=== PATIENT | female | born 1970 | race Caucasian/White ===

== ENCOUNTER 2021-08-27 21:04 | Emergency (ER) | payer OTHER, SELFPAY ==
--- NOTE | ~2021-08-27 | CT_ITS ---
EXAMINATION: CT abdomen pelvis w con EXAM DATE: 08/27/2021 23:19 INDICATION: Fever, vomiting, body aches. . TECHNIQUE: Spiral CT of the abdomen and pelvis was performed following intravenous injection of 100 m L Omnipaque 350. Axial, coronal and sagittal images of the abdomen and pelvis were reviewed. The do se-length product (DLP) for this examination was 1579.51 mGy-cm. The exposure was tailored according to patient size (auto mA exposure control), and iterative reconstruction (ASIR) was used as addition al dose reduction technique. There is no prior study for comparison. FINDINGS: There is hepatic steatosis without suspicious focal lesion identified. Spleen, adrenal glan ds, pancreas are unremarkable. There are cholecystectomy clips. Portal and splenic veins are patent . Kidneys enhance symmetrically. There is no hydronephrosis. The uterus is anteverted and morphol ogically normal. The bladder is unremarkable. No abdominal or pelvic lymphadenopathy. The appendix is not positively visualized. There is no pericecal inflammatory change to suggest appe ndicitis. The stomach and small bowel are unremarkable. There is expected amount of colonic stool. No free intraperitoneal gas. The heart is normal in size. There are no pericardial or pleural e ffusions. Scattered basilar subsegmental atelectasis. Right middle lobe calcified granuloma. IMPRESSION: Hepatic steatosis. No acute intra-abdominal findings. Reviewed, dictated and finalized at location A.
--- NOTE | ~2021-08-27 | XR_ITS ---
EXAMINATION: XR chest 2V DATE: 08/27/2021 21:45 INDICATION: Fever, sore throat, body aches TECHNIQUE: PA and lateral views of the chest are obtained. COMPARISON: None available FINDINGS: There are minimal opacities of the lung bases. There is no pleural effusion or pneumothorax . The cardiomediastinal silhouette is normal. There is mild thoracic spondylosis. IMPRESSION: 1. Bibasilar airspace opacities, consistent with atelectasis versus pneumonia. Reviewed, dictated and finalized at location F.
[2021-08-27 21:09] VITALS: BP 133/79; PULSE 120; RESP 18; TEMP 36.8; O2SAT 94
--- NOTE | 2021-08-27 21:39 | ED.FEVER ---
HPI - Fever General Chief Complaint: Fever Stated Complaint: fever x 1 day Time Seen by Provider: 08/27/21 21:20 Source: patient Mode of arrival: ambulatory Limitations: no limitations History of Present Illness HPI Narrative: This is a 51 year old female that presents to the ER for fevers noted since yesterday. Reports her daughter was recently sick as well. Reports sore throat and myalgias. Also reports nausea and vomiting. Reports she had strep, influenza, and COVID swabs today at her primary office which all were negative. Denies focal abdominal pain, dysuria, or diarrhea. Related Data Allergies Allergy/AdvReac Type Severity Reaction Status Date / Time No Known Allergies Allergy Unverified 12/04/15 17:16 Review of Systems Review of Systems: CONSTITUTIONAL: Reports fever ENT: Reports sore throat RESPIRATORY: Denies dyspnea. GASTROINTESTINAL: Reports nausea and vomiting. Denies abdominal pain or diarrhea. GENITOURINARY: Denies dysuria MUSCULOSKELETAL: Reports myalgia. All systems reviewed & are unremarkable except as noted in HPI and below PMFSH Past Medical History Medical History (Updated 08/28/21 @ 00:35 by Zahira Rizo PA-C) No active medical problems Family History Family History (Updated 12/03/15 @ 13:07 by DOCTOR UNKNOWN) Other Diabetes mellitus Family history of allergic disorder Hypertension Social History Social History Smoking status: Former smoker Smoking end date: 05/10/11 Alcohol intake: current Exam Narrative: GENERAL: Well-appearing, well-nourished, and in no acute distress. HEAD: Normocephalic, atraumatic. EYES: EOMI. ENT: Nares clear, no rhinorrhea or epistaxis. Mucous membranes moist. Oropharynx without tonsillar hypertrophy exudate or other lesions. Bilateral TMs pearly leiva non-bulging NECK: Supple. No adenopathy or masses. CHEST: Clear to auscultation. No respiratory distress. No wheezes rales or rhonchi HEART: Regular rate and rhythm. No murmur heard. Normal peripheral pulses. ABDOMEN: Soft, nontender, nondistended, normal active bowel sounds. EXTREMITIES: Normal range of motion. No edema. SKIN: Warm, dry, no rash. NEURO: No focal deficits. Alert and oriented x3. PSYCH: Normal mood and affect Course Vital Signs Vital signs: Vital Signs Temperature 98.3 F 08/27/21 21:09 Pulse Rate 120 H 08/27/21 21:09 Respiratory Rate 18 08/27/21 21:09 Blood Pressure 133/79 08/27/21 21:09 Pulse Oximetry 94 08/27/21 21:09 Temperature 98.9 F 08/27/21 22:50 Pulse Rate 120 H 08/27/21 21:09 Respiratory Rate 16 08/27/21 22:50 Blood Pressure 128/76 08/27/21 22:50 Pulse Oximetry 100 08/27/21 22:50 MDM - Fever MDM Narrative Medical decision making narrative: Patient presents to the emergency department for cold symptoms present since yesterday. Tachycardic upon arrival, this normalized with IV fluid administration. She has been afebrile in the ED. She is non-toxic appearing. Oxygen saturation has remained normal on room air. CBC with leukocytosis to 13.9. Metabolic panel without concerning findings. UA without evidence of infection. Lactic acid is not elevated. CT scan of the abdomen and pelvis without acute findings. Does show an incidental splenic hypodensity. Chest x-ray shows bibasilar airspace opacities, atelectasis versus pneumonia. Patient was updated on case findings. Will be started on oral antibiotics for pneumonia. She is stable and felt appropriate for further outpatient evaluation. She was given warnings to return to the ER Lab Data Attestation: I reviewed the patient's lab results. Result diagrams: 08/27/21 22:01 08/27/21 22:01 Labs: Lab Results 08/27/21 08/27/21 08/27/21 Range/Units 22:01 22:01 22:01 WBC 13.9 H (4.5-10.0) K/mm3 RBC 5.04 (4.2-5.4) M/mm3 Hgb 13.8 (12.0-15.0) g/dL Hct 41.2 (37.0-47.0) % MCV 81.7 (80-100) fl MCH 27.4 (26-34) pg MCHC
[2021-08-27 21:44] VITALS: TEMP 37.7
[2021-08-27] MEDS: ONDANSETRON INJ 4 MG/2 ML VIAL IV PUSH (22:12)
[2021-08-27] MEDS: SODIUM CHLORIDE 0.9% IV 1,000 ML 999 ML IV CONT (22:12)
[2021-08-27 22:18] LABS: Basophils Percent Auto 0.3 % (0.2-1.2); Eosinophils Percent Auto 0.1 % (0-4.4); Hematocrit 41.2 % (37.0-47.0); Hemoglobin 13.8 g/dL (12.0-15.0); Immature Granulocyte Absolute 0.09 K/mm3 (0.00-0.031); Immature Granulocyte Percent A 0.6 % (0-0.5); Lymphocytes Absolute Auto 1.41 K/mm3 (0.9-3.2); Lymphocytes Percent Auto 10.2 % (18.3-44.2); Mean Corpuscular HGB Conc 33.5 g/dl (32-36); Mean Corpuscular Hemoglobin 27.4 pg (26-34); Mean Corpuscular Volume 81.7 fl (80-100); Mean Platelet Volume 9.6 fl (7.4-10.4); Monocytes Percent Auto 7.3 % (2.6-8.5); Neutrophils Absolute Auto 11.3 K/mm3 (1.3-6.7); Neutrophils Percent Auto 81.5 % (45.5-73.1); Platelet Count Result 247 k/mm3 (150-375); Red Blood Count 5.04 M/mm3 (4.2-5.4); Red Cell Distribution Width 16.5 % (11.5-14.5); White Blood Count 13.9 K/mm3 (4.5-10.0)
[2021-08-27 22:28] LABS: INR 1.2; Prothrombin Time 14.6 Seconds (11.1-14.7)
[2021-08-27 22:29] LABS: Partial Thromboplastin Time 36.5 SECONDS (22.3-36.8)
[2021-08-27 22:50] VITALS: BP 128/76; RESP 16; TEMP 37.2; O2SAT 100
[2021-08-27 23:06] LABS: Alanine Aminotransferase 16 U/L (4-35); Albumin Level 4.4 g/dL (3.5-5.1); Alkaline Phosphatase 109 U/L (38-126); Anion Gap 9 mmol/L (8-16); Aspartate Amino Transferase 36 U/L (14-36); Bilirubin,Total 0.8 mg/dL (0.2-1.3); Blood Urea Nitrogen 12 mg/dL (7-17); CRP 14.6 mg/dL (<1.0); Calcium 8.5 mg/dL (8.4-10.2); Carbon Dioxide 20 mmol/L (22-30); Chloride 102 mmol/L (98-107); Estimated CRCL calculation 94 ml/min; Estimated Glomerular Filt Rate > 60; Glucose 140 mg/dL (65-110); Lipase 64 U/L (23-300); Potassium 4.2 mmol/L (3.4-5.0); Sodium 131 mmol/L (137-145)
[2021-08-27 23:13] LABS: Appearance Urine Clear (Clear); Bilirubin Urine Negative (Negative); Blood Urine 2+ (Negative); Color Urine Yellow (Yellow); Glucose Urine UA Negative (Negative); Ketones Urine 1+ mg/dL (Negative); Leukocyte Esterase Ur Negative LEU/UL (Negative); Nitrate Urine Negative (Negative); Protein Urine Negative (Negative); Urobilinogen Urine 0.2 mg/dL (<2.0)
[2021-08-27 23:23] LABS: Add Urine Microscopic? YES; Bacteria Urine Trace /hpf; Mucus Urine Rare /lpf; Squamous Epithelial Cell Urine Few /hpf (Few); WBC Urine 0-3 /hpf
[2021-08-28] MEDS: AMOXICILLIN 500 MG CAPSULE PO (01:10)
[2021-08-28] MEDS: AZITHROMYCIN 250 MG TABLET 500 MG PO (01:10)
[2021-08-28 01:16] VITALS: BP 112/72; PULSE 72; RESP 16; O2SAT 100
== END 2021-08-28 01:23 | disposition home or self-care (01) ==
PROVIDERS: Physician Assistant; Emergency Provider Emergency Medicine; PCP Nurse Practitioner Family
DX: D73.89 Other diseases of spleen (principal)
CPT/HCPCS: 36415; 71046; 74177; 80053; 81001; 83605; 83690; 85025; 85610; 85730; 86140; 87040; 96361; 96374; 96375; 99284; A9270; J0131; J2405; J7030; Q9967

== ENCOUNTER 2023-04-26 09:12 | Outpatient (CLI) | payer OTHER, SELFPAY ==
[2023-04-26 10:16] LABS: Basophils Percent Auto 0.5 % (0.2-1.2); Eosinophils Absolute Auto 0.6 K/mm3 (0-0.3); Eosinophils Percent Auto 6.3 % (0-4.4); Hematocrit 43.2 % (37.0-47.0); Hemoglobin 14.2 g/dL (12.0-15.0); Immature Granulocyte Absolute 0.06 K/mm3 (0.00-0.031); Immature Granulocyte Percent A 0.7 % (0-0.5); Lymphocytes Absolute Auto 2.31 K/mm3 (0.9-3.2); Lymphocytes Percent Auto 26.3 % (18.3-44.2); Mean Corpuscular HGB Conc 32.9 g/dl (32-36); Mean Corpuscular Hemoglobin 26.8 pg (26-34); Mean Corpuscular Volume 81.7 fl (80-100); Mean Platelet Volume 10.1 fl (7.4-10.4); Monocytes Absolute Auto 0.6 K/mm3 (0.1-0.6); Monocytes Percent Auto 6.4 % (2.6-8.5); Neutrophils Absolute Auto 5.3 K/mm3 (1.3-6.7); Neutrophils Percent Auto 59.8 % (45.5-73.1); Platelet Count Result 303 k/mm3 (150-375); Red Blood Count 5.29 M/mm3 (4.2-5.4); Red Cell Distribution Width 15.9 % (11.5-14.5); White Blood Count 8.8 K/mm3 (4.5-10.0)
[2023-04-26 10:35] LABS: Alanine Aminotransferase 28 U/L (6-35); Albumin Level 4.4 g/dL (3.5-5.1); Alkaline Phosphatase 113 U/L (38-126); Anion Gap 13 mmol/L (8-16); Aspartate Amino Transferase 31 U/L (14-36); Bilirubin,Total 0.6 mg/dL (0.2-1.3); Blood Urea Nitrogen 11 mg/dL (7-17); Calcium 9.3 mg/dL (8.4-10.2); Carbon Dioxide 19 mmol/L (22-30); Chloride 106 mmol/L (98-107); Cholesterol 232 mg/dL (0-200); Estimated Glomerular Filt Rate > 60; Glucose 120 mg/dL (65-110); HDL Direct 31 mg/dL; Sodium 138 mmol/L (137-145); Triglycerides 306 mg/dL (<150)
[2023-04-26 10:46] LABS: LDL Cholesterol Direct 131 mg/dL
[2023-04-26 11:04] LABS: Vitamin D 25 Hydroxy 17.7 ng/mL
== END 2023-04-26 09:13 | disposition home or self-care (01) ==
LOC: ANHLAB 09:13
PROVIDERS: PCP Nurse Practitioner Family; Visit Provider Registered Nurse
DX: N95.1 Menopausal and female climacteric states (principal); Z79.899 Other long term (current) drug therapy; Z51.81 Encounter for therapeutic drug level monitoring
CPT/HCPCS: 36415; 80053; 80061; 82306; 83001; 84443; 85025

== ENCOUNTER → 2023-04-26 11:44 | Outpatient (CLI) | payer OTHER, SELFPAY ==
--- NOTE | ~2023-04-26 | US_ITS ---
EXAMINATION: US pelvic complete w TV DATE: 04/26/2023 12:09 INDICATION: Postmenopausal bleeding TECHNIQUE: Multiple transabdominal and endovaginal sonographic images of the pelvis were obtained. COMPARISON: None. FINDINGS: The uterus measures 10.6 x 7.2 x 7.7 cm. The endometrial complex measures 2.1 cm. The ovari es are not visualized however no adnexal abnormality is seen. There is no free fluid in the pelvis. IMPRESSION: 1. Endometrial thickening which may be due to hyperplasia, polyp, or malignancy. Endometrial sampling is recommended. Reviewed, dictated and finalized at location B. NETWORK ENGINEER IMPRESSION: 1. Endometrial thickening which may be due to hyperplasia, polyp, or malignancy . Endometrial sampling is recommended.
== END ==
PROVIDERS: PCP Registered Nurse; Visit Provider Registered Nurse
DX: N95.0 Postmenopausal bleeding (principal); N85.00 Endometrial hyperplasia, unspecified
CPT/HCPCS: 76830; 76856

== ENCOUNTER 2023-05-12 09:56 | Outpatient (CLI) | payer OTHER, SELFPAY ==
[2023-05-12 14:53] LABS: T4 Thyroxine 7.31 ug/dL (5.53-11.0)
== END 2023-05-12 09:57 | disposition home or self-care (01) ==
LOC: ANHLAB 09:57
PROVIDERS: PCP Registered Nurse; Visit Provider Obstetrics & Gynecology
DX: R79.89 Other specified abnormal findings of blood chemistry (principal)
CPT/HCPCS: 36415; 84436

== ENCOUNTER 2023-08-13 15:44 | Outpatient (CLI) | payer OTHER, SELFPAY ==
--- NOTE | ~2023-08-13 | MM_ITS ---
EXAMINATION: MM screening jayro BI w [facility] HISTORY: Screening mammogram TECHNIQUE: Craniocaudal and mediolateral oblique 3-D tomosynthesis images were obtained and synthetic 2-D images were generated. CAD analysis was submitted and interpreted. COMPARISON: No prior mammogram is available for comparison at this institution. BREAST PARENCHYMAL COMPOSITION: The breasts are heterogeneously dense, which may obscure small masses . FINDINGS: There is fibroglandular asymmetry. There are bilateral axillary tail lymph nodes and some p rominent axillary lymph nodes. Comparison with the prior mammogram reportedly at [facility] recommended. There is no evidence of suspicious mass, calcification, or architectur al distortion to suggest malignancy in either breast. IMPRESSION: 1. Probable benign bilateral axillary tail and axillary lymph nodes and probable benign fibroglandula r asymmetry 2. Comparison with prior mammogram is recommended BI-RADS Category 0: Incomplete: Needs additional imaging evaluation. Reviewed, dictated and finalized at location A. IMPRESSION: 1. Probable benign bilateral axillary tail and axillary lymph nodes and probabl e benign fibroglandular asymmetry 2. Comparison with prior mammogram is recommended BI-RADS Category 0: Incomplete: Needs additional imaging evaluation.
== END 2023-08-13 15:45 ==
PROVIDERS: Visit Provider Obstetrics & Gynecology
DX: Z12.31 Encounter for screening mammogram for malignant neoplasm of breast (principal); R92.8 Other abnormal and inconclusive findings on diagnostic imaging of breast
CPT/HCPCS: 77063; 77067

== ENCOUNTER 2025-02-20 07:23 | Outpatient (CLI) | payer OTHER, SELFPAY ==
--- NOTE | ~2025-02-20 | MM_ITS ---
EXAMINATION: MM screening jayro BI w [facility] HISTORY: Screening TECHNIQUE: Craniocaudal and mediolateral oblique 3-D tomosynthesis images were obtained and synthetic 2-D images were generated. CAD analysis was submitted and interpreted. COMPARISON: 08/13/2023 BREAST PARENCHYMAL COMPOSITION: The breasts are extremely dense, which lowers the sensitivity of mammography. FINDINGS: There is no evidence of suspicious mass, calcification, or architectural distortion to suggest malignancy. Asymmetry in the medial left breast, middle depth, seen in the left CC projection. IMPRESSION: 1. Asymmetry in the medial left breast, middle depth, seen in the left CC projection. The study is incomplete. A diagnostic mammogram and a diagnostic ultrasound are recommended. 2. No evidence of malignancy in the right breast. BI-RADS 0: Incomplete-Need additional imaging evaluation. Reviewed, dictated and finalized at location Q. IMPRESSION: 1. Asymmetry in the medial left breast, middle depth, seen in the left CC proje ction. The study is incomplete. A diagnostic mammogram and a diagnostic ultraso und are recommended. 2. No evidence of malignancy in the right breast. BI-RADS 0: Incomplete-Need additional imaging evaluation.
== END 2025-02-20 07:24 | disposition home or self-care (01) ==
PROVIDERS: PCP Registered Nurse
DX: Z12.31 Encounter for screening mammogram for malignant neoplasm of breast (principal); R92.8 Other abnormal and inconclusive findings on diagnostic imaging of breast
CPT/HCPCS: 77063; 77067